=== PATIENT | female | born 1995 | race African-American/Black ===

== ENCOUNTER 2017-01-22 12:56 | Emergency (ER) | payer OTHER ==
[~2017-01-22] VITALS: Ht 160 cm; Wt 56.0 kg
[2017-01-22 12:58] VITALS: BP 116/68; PULSE 70; RESP 20; TEMP 97.8; O2SAT 100
--- NOTE | 2017-01-22 13:12 | PD ---
Physical Exam Time Seen by Provider: 13:09 Narrative 21yo F requesting testing for herpes 1 and 2. Denies vag dc, odor, itch, lesions. Denies dysuria, abd pain. Had prior test saying she had "antibodies to herpes" and wants to know if its type 1 or 2. Patient seen in triage. VS reviewed. Awaiting bed placement. Data Data Last Documented VS Vital Signs Date Time Temp Pulse Resp B/P Pulse Ox O2 Delivery O2 Flow Rate FiO2 01/22/17 12:58 97.8 70 20 116/68 100 Room Air MDM Supervised Visit with LIS: Sakina Richard Jan 22, 2017 13:12
--- NOTE | 2017-01-22 14:09 | PD ---
HPI Chief Complaint: Medical Clearance Time Seen by Provider: 14:08 Travel History International Travel<30 days: No Contact w/Intl Traveler<30days: No Traveled to known affect area: No History of Present Illness HPI 21-year-old female presents to the emergency department requesting interpretation of lab testing. Patient states that she had bumps on her vaginal area 2 months ago and was seen at an outpatient urgent care. States that she was told that it was likely secondary to shaving and was prescribed medications. States that her symptoms resolved after taking the medication she was given. States that she was concerned that she may have herpes so she called the urgent care doctor and requested to be tested for HSV and went to an outpatient lab and had HSV testing. States that she was told that she had positive antibodies for HSV but is unsure whether it is HSV 1 or HSV 2. States that he called in a prescription for herpes but she never got it filled and never took it. She is here asking for interpretation of whether she has HSV 1 or HSV 2. She states that she is completely asymptomatic after taking the initial medications which she thinks were antibiotics. No other complaints. PFSH Past Medical History Diminished Hearing: No Reproductive: Yes (HERPES) Respiratory: Yes (asthma) Immunizations Current: No Tetanus Vaccination: Never Vaccinated Influenza Vaccination: No ?: Not Past Surgical History Surgical History: No Previous Surgery Other Surgery: Yes (FIBROID REMOVAL LEFT BREAST ) Social History Alcohol Use: Yes (OCC) Tobacco Use: No Substance Use: No Allergies-Medications (Allergen,Severity, Reaction): Coded Allergies: No Known Allergies (Unverified , 01/22/17) Review of Systems Except as stated in HPI: all other systems reviewed are Neg Physical Exam Narrative GENERAL: Well-nourished and well-developed pleasant patient in no acute distress who is nontoxic appearing. SKIN: Warm and dry. HEAD: Normocephalic and atraumatic. EYES: No injection, drainage, or hyphema noted. PERRLA. EOMI. ENT: No nasal drainage noted. Oropharynx is clear. NECK: Supple and the trachea is midline. CARDIOVASCULAR: Regular rate and rhythm. RESPIRATORY: Breath sounds are equal bilaterally with no accessory muscle use, wheezing, rhonchi, or crackles. MUSCULOSKELETAL: No obvious deformities, swelling, cyanosis, or ecchymosis is present throughout the upper and lower extremities. Patient has full range of motion without any signs of neurovascular compromise. NEUROLOGICAL: Awake, alert, and oriented. Normal speech and gait. Cranial nerves are grossly intact. Data Data Last Documented VS Vital Signs Date Time Temp Pulse Resp B/P Pulse Ox O2 Delivery O2 Flow Rate FiO2 01/22/17 12:58 97.8 70 20 116/68 100 Room Air MDM Medical Decision Making Medical Screen Exam Complete: Yes Emergency Medical Condition: Yes Differential Diagnosis Interpretation of laboratory testing versus medical clearance versus HSV Narrative Course 21-year-old female presents to the emergency department requesting interpretation of lab testing she had performed as an outpatient. Patient is afebrile, vital signs are stable. She is currently asymptomatic and has no complaints. Physical examination is unremarkable. She does not have the lab testing with her. There is no urgent or emergent intervention necessary at this time. I discussed with the patient that she should follow-up with the physician who ordered the labs and discussed the interpretation with that physician. A medical screening exam was performed: At the time of evaluation the presenting medical condition was determined not to be of an emergent nature. Patient was given options for additional community resources from which to obtain care. The Patient Has Been advised to seek medical attention for their presenting complaint. The patient has been advised to return to the ER at any time if an emergent condition develops. Diagnosis Primary Impression: Encounter for medical screening examination Disposition: [facility]-ED USE ONLY Sakina Bravo Jan 22, 2017 14:09
== END 2017-01-22 15:05 | disposition left against medical advice (07) ==
LOC: NEPK 12:56
DX: Z20.89 Contact with and (suspected) exposure to other communicable diseases (principal); J45.909 Unspecified asthma, uncomplicated
CPT/HCPCS: 99281

== ENCOUNTER 2017-05-21 02:10 | Emergency (ER) | payer OTHER ==
[2017-05-21 02:12] VITALS: BP 140/89; PULSE 85; RESP 15; TEMP 97.8; O2SAT 100
--- NOTE | 2017-05-21 02:37 | PD ---
HPI Chief Complaint: Skin Problem Time Seen by Provider: 02:32 Travel History International Travel<30 days: No Contact w/Intl Traveler<30days: No Traveled to known affect area: No History of Present Illness HPI Patient comes emergency Department complaining of left upper anterior chest wall mass ongoing for 2 weeks. Patient feels there is a mass over her rib. Patient states she was seen for this 2 weeks ago at urgent care and was told that it was just her bone. Patient concerned feels is not getting any better and feels it is getting more swollen. 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 Patient denies any fevers, weight loss, cough, chest pain, shortness breath, fevers, nausea, vomiting, or headaches. Denies anything making this better. H&P was performed with presence staffing operations managerCISCO Hernandez at all times. PFS Past Medical History Medical History: Denies Significant Hx Asthma: Yes Diminished Hearing: No Reproductive: Yes (HERPES) Respiratory: Yes (asthma) Immunizations Current: No ?: Not LMP: 04/22/17 Past Surgical History Surgical History: No Previous Surgery Other Surgery: Yes (FYBROIDS REMOVED FROM LEFT BREAST) Social History Alcohol Use: No Tobacco Use: No Substance Use: No Allergies-Medications (Allergen,Severity, Reaction): Coded Allergies: No Known Allergies (Unverified Adverse Reaction, Unknown, 05/21/17) Reported Meds & Prescriptions Reported Meds & Active Scripts Active No Active Prescriptions or Reported Medications Review of Systems Except as stated in HPI: all other systems reviewed are Neg Physical Exam Narrative GENERAL: Well-developed, well nourished, in no acute distress, and non-ill appearing. SKIN: Focused skin assessment warm and dry. HEAD: Atraumatic. Normocephalic. EYES: Pupils equal and round. EOMI. No scleral icterus. No injection or drainage. ENT: No nasal bleeding or discharge. Mucous membranes pink and moist. NECK: Trachea midline. Supple. No nuclear rigidity. RESPIRATORY: No accessory muscle use. No respiratory distress. MUSCULOSKELETAL: No obvious deformities. No clubbing. No cyanosis. No edema. Full range of motion. Patient reports tenderness to palpation over left upper anterior rib cage near the xiphoid process. There is no obvious deformity, crepitus, step-off, or signs of infection. Appears normal rib cage bone. NEUROLOGICAL: Awake and alert. No obvious cranial nerve deficits. Motor grossly within normal limits. Normal speech. PSYCHIATRIC: Appropriate mood and affect; insight and judgment normal. Data Data Last Documented VS Vital Signs Date Time Temp Pulse Resp B/P (MAP) Pulse Ox O2 Delivery O2 Flow Rate FiO2 05/21/17 03:41 05/21/17 02:12 97.8 85 15 100 Room Air Orders Orders Chest, Single Ap (05/21/17 ) Ed Discharge Order (05/21/17 03:34) MDM Medical Decision Making Medical Screen Exam Complete: Yes Emergency Medical Condition: No Differential Diagnosis Mass, rib pain, costochondritis, other Narrative Course Patient in no obvious distress upon re-evaluation. All pertinent Radiology result(s) discussed with patient. Any questions/concerns in reference to patient diagnosis/condition discussed and clarified prior to patient's discharge. Reinforced sheer importance of close follow up with patient's primary physician or primary care clinic. Instructed patient to return to ED immediately, if symptoms return/worsen. Patient showed understanding of above instructions. Further instructions and recommendations were detailed in discharge paperwork. Patient ambulated without difficulty out of ED at discharge. Diagnosis Primary Impression: Rib pain on left side Referrals: [facility] Patient Instructions: General Instructions Additional Instructions: Follow-up with your primary care physician next week for further evaluation. Use [id number] Tylenol and/or ibuprofen as needed for pain. Follow instructions on the packaging. Return to the emergency department if symptoms get worse. Scripts No Active Prescriptions or Reported Meds Disposition: 01 DISCHARGE HOME Condition: Stable Piero Barkley May 21, 2017 02:36
--- NOTE | 2017-05-21 03:10 | RADRPT ---
EXAM DATE/TIME: 05/21/2017 02:50 [facility] COMPARISON: No previous studies available for comparison. INDICATIONS : Patient complains of having a palpable mass in center of chest. MEDICAL HISTORY : Asthma. SURGICAL HISTORY : None. ENCOUNTER: Initial ACUITY: 1 day PAIN SCORE: 0/10 LOCATION: chest FINDINGS: A single view of the chest demonstrates the lungs to be symmetrically aerated without evidence of mas s, infiltrate or effusion. The cardiomediastinal contours are unremarkable. Osseous structures are intact. CONCLUSION: No acute cardiopulmonary disease demonstrated. Pedro Luis Alarcon MD on May 21, 2017 at 3:08 Board Certified Radiologist. This report was verified electronically.
== END 2017-05-21 03:42 | disposition home or self-care (01) ==
LOC: NEPD 02:10
DX: R07.81 Pleurodynia (principal); J45.909 Unspecified asthma, uncomplicated
CPT/HCPCS: 71010; 99283

== ENCOUNTER 2017-10-02 15:35 | Emergency (ER) | payer OTHER ==
[~2017-10-02] VITALS: Ht 160 cm; Wt 54.0 kg
[2017-10-02 15:37] VITALS: BP 126/79; PULSE 81; RESP 15; TEMP 99
[2017-10-02] MEDS ORDERED: KETOROLAC TROMETHAMINE 60 MG/2 ML (IM) VIAL IM ONE (16:45)
[2017-10-02] MEDS ORDERED: TETANUS/DIPHTHERIA TOXOID ADULT 0.5 ML VIAL IM ONE (16:45)
--- NOTE | 2017-10-02 16:47 | PD ---
HPI . Dog bite Chief Complaint: Bite or Sting Time Seen by Provider: 16:31 Travel History International Travel<30 days: No Contact w/Intl Traveler<30days: No Traveled to known affect area: No History of Present Illness HPI Patient presents complaining with a dog bite to her right forearm. She was walking her dog when a neighbor's dog tried to jump up on her. She was subsequently bitten. She states that she does not know the optometrist owner of the other dog but that she recognizes her. She lives in the neighborhood. She does not believe that they will have any trouble finding the optometrist owner. She states that the dog is a pit bull. The patient does not know the date of her last tetanus shot. She has not cleaned the wound prior to presentation. It just happened. Symptoms are very mild. PFSH Past Medical History Asthma: Yes Diminished Hearing: No Reproductive: Yes (HERPES) Respiratory: Yes (asthma) Immunizations Current: No ?: Not Past Surgical History Other Surgery: Yes (FYBROIDS REMOVED FROM LEFT BREAST) Social History Alcohol Use: No Tobacco Use: No Substance Use: No Allergies-Medications (Allergen,Severity, Reaction): Coded Allergies: No Known Allergies (Unverified Adverse Reaction, Unknown, 10/02/17) Reported Meds & Prescriptions Reported Meds & Active Scripts Active No Active Prescriptions or Reported Medications Review of Systems Except as stated in HPI: all other systems reviewed are Neg Physical Exam Narrative GENERAL: Awake and alert and in no acute distress. SKIN: Warm and dry. She has a superficial laceration on the right forearm. It is about 1.5 cm in length. It is not gaping. It is not bleeding. There is no significant soft tissue swelling or bruising. HEAD: Normocephalic/atraumatic. EYES: Pupils are equal. Extraocular movements are intact. NECK: Normal range of motion. RESPIRATORY: Nonlabored respirations. MUSCULOSKELETAL: Atraumatic. NEUROLOGICAL: Nonfocal. PSYCHIATRIC: Appropriate mood and affect. Data Data Last Documented VS Vital Signs Date Time Temp Pulse Resp B/P (MAP) Pulse Ox O2 Delivery O2 Flow Rate FiO2 10/02/17 15:37 99.0 81 15 126/79 (95) Orders Orders Tetanus/Diphtheria Tox Adult (Tetanus/Di (10/02/17 16:45) Ketorolac Inj (Toradol Inj) (10/02/17 16:45) Wound Care (10/02/17 16:37) [facility] Medical Decision Making Medical Screen Exam Complete: Yes Emergency Medical Condition: Yes Differential Diagnosis Differential diagnosis of animal bite includes but is not limited to wound, wound infection, retained foreign body, open fracture, sepsis, rabies. Narrative Course This patient presents with a superficial dog bite on the right forearm. It may actually be a scratch. There is no significant contusion associated with the wound which would normally be expected with a bite from a large dog. A police report has already been filed. The patient believes that they will be able to find the dog. Therefore, rabies vaccinations will not be initiated at this time. The wound is very superficial. I do not believe that prophylactic antibiotics are necessary. This wound should do well just with local wound care. I will update her tetanus shot. Diagnosis Primary Impression: Dog bite Qualified Codes: W54.0XXA - Bitten by dog, initial encounter Patient Instructions: Animal Bite (DC), General Instructions Additional Instructions: Wash the wound twice daily with soap and water. Apply an antibiotic ointment such as Neosporin. Return for any signs of infection such as redness, warmth, swelling, increasing pain. Follow up with law enforcement regarding the status of the dog's rabies vaccination. Scripts No Active Prescriptions or Reported Meds Disposition: 01 DISCHARGE HOME Condition: Stable Nany Irvin MD Oct 02, 2017 16:47
== END 2017-10-02 17:15 | disposition home or self-care (01) ==
LOC: NEPD 15:35
DX: S51.851A Open bite of right forearm, initial encounter (principal); J45.909 Unspecified asthma, uncomplicated; W54.0XXA Bitten by dog, initial encounter; Z23 Encounter for immunization
CPT/HCPCS: 90471; 90714; 96372; 99283; J1885

== ENCOUNTER 2017-10-10 11:35 | Emergency (ER) | payer OTHER ==
[~2017-10-10] VITALS: Ht 160 cm; Wt 54.5 kg
[2017-10-10 11:42] VITALS: BP 104/75; PULSE 83; RESP 16; TEMP 98.2; O2SAT 98
--- NOTE | 2017-10-10 14:21 | PD ---
HPI Chief Complaint: Wound/Suture/Staple Re-Check Time Seen by Provider: 14:19 Travel History International Travel<30 days: No Contact w/Intl Traveler<30days: No Traveled to known affect area: No History of Present Illness HPI 21-year-old female presents emergency department status post dog bite several days ago comes in for question of worsening cellulitis. Patient was seen on the by Dr. Irvin. At that time antibiotics were not felt warranted. Patient was given a tetanus shot. Rabies status of the dog that bit the patient has been determined to be up-to-date. She was concerned that the area appeared somewhat yellow and crusty when she took off her bandage. She denies any other symptoms. No known drug allergies. PFSH Past Medical History Asthma: Yes Diminished Hearing: No Reproductive: Yes (HERPES) Respiratory: Yes (asthma) Immunizations Current: No Past Surgical History Other Surgery: Yes (FYBROIDS REMOVED FROM LEFT BREAST) Social History Alcohol Use: No Tobacco Use: No Substance Use: No Allergies-Medications (Allergen,Severity, Reaction): Coded Allergies: No Known Allergies (Unverified Adverse Reaction, Unknown, 10/02/17) Reported Meds & Prescriptions Reported Meds & Active Scripts Active Bactroban Topical (Mupirocin) 22 Gm Cream 1 Applic TOPICAL BID Review of Systems Except as stated in HPI: all other systems reviewed are Neg General / Constitutional: No: Fever Eyes: No: Visual changes HENT: No: Headaches Cardiovascular: No: Chest Pain or Discomfort Respiratory: No: Shortness of Breath Gastrointestinal: No: Abdominal Pain Genitourinary: No: Dysuria Musculoskeletal: No: Pain Skin: Positive Lesions (See history of present illness ), No Rash Neurologic: No: Weakness Psychiatric: No: Depression Endocrine: No: Polydipsia Hematologic/Lymphatic: No: Easy Bruising Physical Exam Narrative GENERAL: Patient is in no acute distress per SKIN: Warm and dry. Patient is a very superficial abrasion type wound to the right lateral distal forearm without significant erythema or drainage noted. It is dry at this time. There is no sign of abscess. HEAD: Atraumatic. Normocephalic. EYES: Pupils equal and round. No scleral icterus. No injection or drainage. ENT: No nasal bleeding or discharge. Mucous membranes pink and moist. Pharynx is clear. NECK: Trachea midline. Supple. CARDIOVASCULAR: Regular rate and rhythm. RESPIRATORY: No accessory muscle use. Clear to auscultation. Breath sounds equal bilaterally. MUSCULOSKELETAL: Extremities without clubbing, cyanosis, or edema. No obvious deformities. NEUROLOGICAL: Awake and alert. No obvious cranial nerve deficits. Motor grossly within normal limits. Five out of 5 muscle strength in the arms and legs. Normal speech. PSYCHIATRIC: Appropriate mood and affect; insight and judgment normal. Data Data Last Documented VS Vital Signs Date Time Temp Pulse Resp B/P (MAP) Pulse Ox O2 Delivery O2 Flow Rate FiO2 10/10/17 11:42 98.2 83 16 104/75 (85) 98 MDM Medical Decision Making Medical Screen Exam Complete: Yes Emergency Medical Condition: Yes Medical Record Reviewed: Yes Differential Diagnosis Dog bite. Cellulitis. Healing wound. Wound check. Narrative Course I feel the wound is healing appropriately. I reassured the patient I did not feel that she needed oral antibiotics. Patient is given Bactroban ointment to apply twice daily after washing the wound with soap and water. Diagnosis Primary Impression: Visit for wound check Patient Instructions: Animal Bite (ED), General Instructions Additional Instructions: I feel the wound is healing appropriately. I reassured the patient I did not feel that she needed oral antibiotics. Patient is given Bactroban ointment to apply twice daily after washing the wound with soap and water. Med/Other Pt SpecificInfo: Prescription(s) given, Wound Care Scripts Mupirocin Topical (Bactroban Topical) 22 Gm Cream 1 APPLIC TOPICAL BID for Mgmt Bacterial Infection, #1 TUBE 0 Refills Prov: Lisa Monk MD 10/10/17 Disposition: 01 DISCHARGE HOME Condition: Stable Matty Ying Oct 10, 2017 14:21
[2017-10-10] MEDS ORDERED: MUPI2%T TOPICAL (16:10)
== END 2017-10-10 16:21 | disposition home or self-care (01) ==
LOC: NEPD 11:35
DX: S51.851D Open bite of right forearm, subsequent encounter (principal); W54.0XXD Bitten by dog, subsequent encounter; J45.909 Unspecified asthma, uncomplicated
CPT/HCPCS: 99283